=== PATIENT | female | born 1975 | race Two or more races ===

== ENCOUNTER 2021-01-15 17:14 | Outpatient (CLI) | payer OTHER | END 2021-01-15 18:00 | disposition home or self-care (01) | LOC: LAB 17:14 | PROVIDERS: ATTEND Specialist | DX: D50.8 Other iron deficiency anemias (principal); E03.8 Other specified hypothyroidism; E78.3 Hyperchylomicronemia; N39.8 Other specified disorders of urinary system; N92.0 Excessive and frequent menstruation with regular cycle; N80.0 Endometriosis of uterus ==

== ENCOUNTER 2021-01-16 14:25 | Outpatient (CLI) | payer OTHER | END 2021-01-16 14:42 | disposition home or self-care (01) | LOC: MAMO-SONO 14:25 | PROVIDERS: ATTEND Specialist | DX: N60.11 Diffuse cystic mastopathy of right breast (principal); N60.12 Diffuse cystic mastopathy of left breast ==

== ENCOUNTER 2021-01-22 16:02 | Outpatient (CLI) | payer OTHER | END 2021-01-22 16:08 | disposition home or self-care (01) | LOC: LAB 16:02 | PROVIDERS: ATTEND Specialist | DX: D50.8 Other iron deficiency anemias (principal) ==